=== PATIENT | male | born 1965 | race Caucasian/White ===

== ENCOUNTER 2016-02-12 12:43 | Emergency (ER) | payer BC ==
[~2016-02-12] VITALS: Ht 175.3 cm; Wt 93.6 kg
[2016-02-12 13:29] LABS: HEMATOCRIT 43.8 % (38.0-50.0); MCH 29.5 PG (29.0-34.0); MCHC 34.5 G/DL (30.0-36.0); MCV 85.7 FL (86-99); MEAN PLAT.VOLUME 10.2 uM^3 (9.0-12.4); PLATELET COUNT 201 K/uL (156-360); RBC DIS.WIDTH-SD 39.6 % (39-53); RED BLOOD COUNT 5.11 M/uL (4.00-5.50)
[2016-02-12 13:43] LABS: CHLORIDE 105 mEq/L (99-109); POTASSIUM 4.3 mEq/L (3.7-5.4); SODIUM 137 mEq/L (136-147)
[2016-02-12 13:44] LABS: ADD MIUA? NO; BILIRUBIN NEGATIVE; BLOOD NEGATIVE; COLOR YELLOW ((YELLOW)); GLUCOSE (STRIP) NEGATIVE; KETONES NEGATIVE; LEUKOCYTES NEGATIVE; NITRITE NEGATIVE; PROTEIN (STRIP) TRACE; SPECIFIC GRAVITY 1.015 (1.000-1.030); UCUL ADDED? NO; UROBILINOGEN 0.2 MG/DL (0.2-1.0)
[2016-02-12 13:45] LABS: GLUCOSE 112 mg/dL (70-99)
[2016-02-12 13:47] LABS: ANION GAP 9 MEQ/L (2-14)
[2016-02-12 13:49] LABS: GFR ESTIMATE (CALCULATED) > 59 mL/min/
[2016-02-12 13:50] LABS: UREA NITROGEN (BUN) 15 mg/dL (9-23)
[2016-02-12] MEDS ORDERED: TORADOL10 MG PO (15:21)
[2016-02-12] MEDS ORDERED: FLEXERIL10 MG PO (15:21)
[2016-02-12 15:49] VITALS: BP 169/108
== END 2016-02-12 15:51 | disposition home or self-care (01) ==
LOC: EME 12:43
DX: R10.9 Unspecified abdominal pain (principal)
CPT/HCPCS: 74176; 80048; 81003; 85027; 87086; 99281; 99284

== ENCOUNTER 2016-09-15 14:46 | Inpatient (IN) | payer BC ==
[~2016-09-15] VITALS: Ht 175.3 cm; Wt 82.5 kg
[~2016-09-15 14:46] MED LIST: FLEXERIL10 MG PO; TORADOL10 MG PO
[2016-09-15 15:28] LABS: ADD MIUA? NO; BILIRUBIN NEGATIVE; BLOOD NEGATIVE; COLOR YELLOW ((YELLOW)); GLUCOSE (STRIP) NEGATIVE; KETONES NEGATIVE; LEUKOCYTES NEGATIVE; NITRITE NEGATIVE; PROTEIN (STRIP) NEGATIVE; SPECIFIC GRAVITY 1.024 (1.000-1.030); UCUL ADDED? NO; UROBILINOGEN 0.2 MG/DL (0.2-1.0)
[2016-09-15 15:40] LABS: EOSINOPHIL COUNT 0.1 K/uL (0-0.3); HEMATOCRIT 43.4 % (38.0-50.0); IMMATURE GRANULOCYTE (%) 0.6 % (0.0-0.7); INSTRUMENT ABS NEUTROPHIL CT 5.7 K/uL; LYMPHOCYTE COUNT 0.7 K/uL (1.0-2.8); MCH 28.6 PG (29.0-34.0); MCHC 32.7 G/DL (30.0-36.0); MCV 87.5 FL (86-99); MEAN PLAT.VOLUME 10.1 uM^3 (9.0-12.4); MONOCYTE (%) 7.7 % (3-12); MONOCYTE COUNT 0.6 K/uL (0-0.8); NEUTROPHIL (%) 79.2 % (45-76); NEUTROPHIL COUNT 5.7 K/uL (1.8-6.4); PLATELET COUNT 176 K/uL (156-360); RBC DIS.WIDTH-CV 13.2 % (11.8-14.6); RBC DIS.WIDTH-SD 42.5 % (39-53); RED BLOOD COUNT 4.96 M/uL (4.00-5.50); WHITE BLOOD COUNT 7.1 K/uL (4.1-10.2)
[2016-09-15 15:49] LABS: CHLORIDE 112 mEq/L (99-109); INTER. NORMALIZED RATIO 1.1; POTASSIUM 4.3 mEq/L (3.7-5.4); PROTHROMBIN TIME 11.6 SEC (10.2-12.9); SODIUM 143 mEq/L (136-147)
[2016-09-15 15:50] LABS: GLUCOSE 113 mg/dL (70-99)
[2016-09-15 15:51] LABS: PTT 29.4 SEC (25-37)
[2016-09-15 15:52] LABS: ANION GAP 9 MEQ/L (2-14)
[2016-09-15 15:54] LABS: GFR ESTIMATE (CALCULATED) > 59 mL/min/
[2016-09-15 15:55] LABS: UREA NITROGEN (BUN) 20 mg/dL (9-23)
[2016-09-15 16:03] LABS: TROP-I INTERPRETATION NEGATIVE; TROPONIN-I < 0.01 ng/mL (0.0-0.30)
[2016-09-15 16:29] LABS: HDL CHOLESTEROL 29 MG/DL (Desirable>=40); LDL CHOLESTEROL 88 mg/dL (Desirable<100); NON-HDL CHOLESTEROL 111 mg/dL (Desirable<160); TOTAL CHOLESTEROL 140 mg/dL (Desirable<200); TRIGLYCERIDES 115 MG/DL (Normal: <150)
[2016-09-15] MEDS ORDERED: PROBIOTIC1 EAC7 PO (17:24)
[2016-09-15] MEDS ORDERED: ZANTAC150 MG PO (17:25)
[2016-09-15 18:23] LABS: Estimated Average Glucose 111 mg/dL (70-123); HEMOGLOBIN A1c (GLYCOHEMOGLOB) 5.5 % HGB (Below 5.7)
[2016-09-15 20:52] VITALS: BP 143/95
[2016-09-15 23:51] VITALS: BP 136/94
[2016-09-16 03:37] VITALS: BP 117/64
[2016-09-16 07:50] VITALS: BP 131/97
[2016-09-16 12:41] VITALS: BP 134/68
[2016-09-16 16:39] VITALS: BP 130/93
[2016-09-16 19:28] VITALS: BP 134/98
[2016-09-17] VITALS (8 sets, daily range): BP systolic 110–164; BP diastolic 68–99
[2016-09-17 05:54] LABS: BASOPHIL COUNT 0.1 K/uL (0-0.1); EOSINOPHIL (%) 3.7 % (0-5); EOSINOPHIL COUNT 0.3 K/uL (0-0.3); HEMATOCRIT 42.9 % (38.0-50.0); IMMATURE GRANULOCYTE (%) 0.1 % (0.0-0.7); INSTRUMENT ABS NEUTROPHIL CT 5.6 K/uL; LYMPHOCYTE COUNT 1.6 K/uL (1.0-2.8); MCH 28.5 PG (29.0-34.0); MCHC 32.6 G/DL (30.0-36.0); MCV 87.2 FL (86-99); MEAN PLAT.VOLUME 10.7 uM^3 (9.0-12.4); MONOCYTE (%) 8.4 % (3-12); MONOCYTE COUNT 0.7 K/uL (0-0.8); NEUTROPHIL (%) 67.3 % (45-76); NEUTROPHIL COUNT 5.6 K/uL (1.8-6.4); PLATELET COUNT 180 K/uL (156-360); RBC DIS.WIDTH-CV 13.3 % (11.8-14.6); RBC DIS.WIDTH-SD 42.5 % (39-53); RED BLOOD COUNT 4.92 M/uL (4.00-5.50); WHITE BLOOD COUNT 8.3 K/uL (4.1-10.2)
[2016-09-17 06:29] LABS: ANION GAP 9 MEQ/L (2-14); CHLORIDE 108 MEQ/L (99-109); GFR ESTIMATE (CALCULATED) 57 mL/min/; GLUCOSE 96 mg/dL (70-99); POTASSIUM 4.3 MEQ/L (3.7-5.4); SAMPLE HEMOLYSIS CHECK 0; SAMPLE ICTERIC CHECK 0; SAMPLE LIPEMIA CHECK 0; SODIUM 141 MEQ/L (136-147); UREA NITROGEN (BUN) 19 mg/dL (9-23)
[2016-09-18 04:50] VITALS: BP 106/53
[2016-09-18 05:26] LABS: BASOPHIL COUNT 0.1 K/uL (0-0.1); EOSINOPHIL COUNT 0.3 K/uL (0-0.3); HEMATOCRIT 40.2 % (38.0-50.0); IMMATURE GRANULOCYTE (%) 0.2 % (0.0-0.7); INSTRUMENT ABS NEUTROPHIL CT 5.5 K/uL; LYMPHOCYTE COUNT 1.6 K/uL (1.0-2.8); MCH 29.1 PG (29.0-34.0); MCHC 33.3 G/DL (30.0-36.0); MCV 87.2 FL (86-99); MEAN PLAT.VOLUME 10.9 uM^3 (9.0-12.4); MONOCYTE (%) 8.6 % (3-12); MONOCYTE COUNT 0.7 K/uL (0-0.8); NEUTROPHIL (%) 66.5 % (45-76); NEUTROPHIL COUNT 5.5 K/uL (1.8-6.4); PLATELET COUNT 170 K/uL (156-360); RBC DIS.WIDTH-CV 13.2 % (11.8-14.6); RBC DIS.WIDTH-SD 42.3 % (39-53); RED BLOOD COUNT 4.61 M/uL (4.00-5.50); WHITE BLOOD COUNT 8.2 K/uL (4.1-10.2)
[2016-09-18 06:04] LABS: ANION GAP 7 MEQ/L (2-14); CHLORIDE 107 MEQ/L (99-109); GFR ESTIMATE (CALCULATED) 57 mL/min/; GLUCOSE 96 mg/dL (70-99); POTASSIUM 4.3 MEQ/L (3.7-5.4); SAMPLE HEMOLYSIS CHECK 0; SAMPLE ICTERIC CHECK 0; SAMPLE LIPEMIA CHECK 0; SODIUM 141 MEQ/L (136-147); UREA NITROGEN (BUN) 22 mg/dL (9-23)
[2016-09-18 07:15] VITALS: BP 122/84
[2016-09-18 11:46] VITALS: BP 116/80
[2016-09-18 11:53] VITALS: BP 116/80
[2016-09-18] MEDS ORDERED: ELIQUIS5 MG PO (14:47)
[2016-09-18 17:02] VITALS: BP 123/94
[2016-09-18 20:16] VITALS: BP 127/74
[2016-09-19] VITALS: BP 122/72
[2016-09-19 02:53] VITALS: BP 90/55
[2016-09-19 06:10] LABS: ANION GAP 7 MEQ/L (2-14); CHLORIDE 107 MEQ/L (99-109); GFR ESTIMATE (CALCULATED) > 59 mL/min/; GLUCOSE 90 mg/dL (70-99); POTASSIUM 4.2 MEQ/L (3.7-5.4); SAMPLE HEMOLYSIS CHECK 0; SAMPLE ICTERIC CHECK 0; SAMPLE LIPEMIA CHECK 0; SODIUM 140 MEQ/L (136-147); UREA NITROGEN (BUN) 21 mg/dL (9-23)
[2016-09-19 09:01] VITALS: BP 126/82
[2016-09-19] MEDS ORDERED: CARVEDILOL3.125 MG PO (11:11)
[2016-09-19] MEDS ORDERED: LISINOPRIL10 MG PO (11:11)
[2016-09-19] MEDS ORDERED: FUROSEMIDE20 MG PO (11:11)
[2016-09-19] MEDS ORDERED: ASPIR-LOW81 MG PO (11:11)
[2016-09-19] MEDS ORDERED: ELIQUIS5 MG PO ×2 (11:14→11:15)
[2016-09-19] MEDS ORDERED: ATORVASTATIN CA40 MG PO (11:16)
[2016-09-21 18:06] LABS: DRVVT Mixing Study Interp Not Indicated (()); PROTEIN C FUNCTIONAL ACTIVITY+ 142 % (70-180); PTT-LA 38 sec (<=40); Protein S, Free 119 % normal (57-171); dRVVT Screen 39 sec (<=45)
[2016-09-23 21:53] LABS: ANTITHROMBIN III ACTIVITY+ 101 % activi (80-120)
== END 2016-09-19 13:58 | disposition home or self-care (01) | DRG 65 ==
LOC: EME 14:46 → EDOF 16:53 → ENRESERV 16:54 → 5WEST 18:15 → 4EAST 09-17 12:48 → 5WEST 09-17 12:48 → CANRESERV 09-17 13:00 → ENRESERV 09-17 13:00 → 4EAST 09-17 15:38
PROVIDERS: Internal Medicine; Physician Assistant
DX: I63.9 Cerebral infarction, unspecified (principal); I11.0 Hypertensive heart disease with heart failure; I50.20 Unspecified systolic (congestive) heart failure; I42.9 Cardiomyopathy, unspecified; R10.9 Unspecified abdominal pain; K21.9 Gastro-esophageal reflux disease without esophagitis; N52.9 Male erectile dysfunction, unspecified
CPT/HCPCS: 70450; 70496; 70498; 70551; 71020; 78452; 80048; 80048 91; 80061; 81003; 81240 90; 83036; 83090 90; 84443; 84484; 85025; 85025 91; 85240 90; 85300 90; 85303 90; 85305 90; 85306 90; 85307 90; 85610; 85613 90; 85730; 85730 90; 86146 90; 86147 90; 93005; 93017; 93306; 93880; 99281; 99285; A9500; C8923; G0378; J1650; J2785; J7030